=== PATIENT | male | born 1995 | race Two or more races ===

== ENCOUNTER 2018-01-10 23:45 | Emergency (ER) | payer OTHER ==
[~2018-01-10] VITALS: Ht 167.6 cm; Wt 117.9 kg
[2018-01-10 23:52] VITALS: BP 140/88
[2018-01-11] MEDS ORDERED: cefTRIAXone SOD 1,000 MG VL IM ONE (01:15)
[2018-01-11] MEDS ORDERED: methylPREDNISolone SOD SUCC 125 MG/2 ML VL IM ONE (01:15)
[2018-01-11] MEDS ORDERED: HYDROcodone-ACET 10/325MG TAB PO ONE (01:30)
[2018-01-11] MEDS ORDERED: BENZOCAINE (DENTAL) 20 % SPRAY 60ML MT ONE (02:30)
== END 2018-01-11 03:55 | disposition home or self-care (01) ==
LOC: ER 23:45
DX: J03.80 Acute tonsillitis due to other specified organisms (principal); B96.89 Other specified bacterial agents as the cause of diseases classified elsewhere
CPT/HCPCS: 70360; 71045; 96372; 99284; J0696; J2930

== ENCOUNTER 2018-01-11 20:45 | Emergency (ER) | payer OTHER ==
[~2018-01-11] VITALS: Ht 167.6 cm; Wt 117.9 kg
[2018-01-11 21:23] VITALS: BP 145/94
[2018-01-11] MEDS ORDERED: CLINDAMYCIN 900MG IV 50 ML IV ONE (22:45)
[2018-01-11] MEDS ORDERED: methylPREDNISolone SOD SUCC 125 MG/2 ML VL IM ONE (22:45)
[2018-01-11] MEDS ORDERED: cefTRIAXone SOD 1,000 MG VL IM ONE (22:45)
== END 2018-01-12 00:51 | disposition home or self-care (01) ==
LOC: ER 20:49
DX: J03.80 Acute tonsillitis due to other specified organisms (principal); B96.89 Other specified bacterial agents as the cause of diseases classified elsewhere
CPT/HCPCS: 96365; 96372; 99284; J0696; J2930; J3490

== ENCOUNTER 2018-02-02 19:53 | Emergency (ER) | payer OTHER ==
[~2018-02-02] VITALS: Ht 167.6 cm; Wt 117.9 kg
[2018-02-02] MEDS ORDERED: PENICILLIN G PROC & BENZAT 1200000 UNITS/2 ML SYRG IM ONE (21:45)
[2018-02-02 22:23] VITALS: BP 153/121
== END 2018-02-02 23:22 | disposition home or self-care (01) ==
LOC: ER 19:53
DX: J03.90 Acute tonsillitis, unspecified (principal); E66.01 Morbid (severe) obesity due to excess calories; Z68.41 Body mass index [BMI] 40.0-44.9, adult
CPT/HCPCS: 87070; 87880; 96372; 99283; J0558

== ENCOUNTER 2019-08-28 10:10 | Emergency (ER) | payer MEDICAID, OTHER ==
[~2019-08-28] VITALS: Ht 165.1 cm; Wt 136.1 kg
[2019-08-28 10:34] VITALS: BP 151/94
[2019-08-28] MEDS ORDERED: cefTRIAXone SOD 1,000 MG VL IM ONE (11:30)
[2019-08-28] MEDS ORDERED: methylPREDNISolone SOD SUCC 125 MG/2 ML VL IM ONE (11:30)
== END 2019-08-28 12:02 | disposition home or self-care (01) ==
LOC: ER 10:10
DX: J03.90 Acute tonsillitis, unspecified (principal)
CPT/HCPCS: 96372; 99284; J0696; J2930

== ENCOUNTER 2020-02-14 21:13 | Emergency (ER) | payer MEDICAID ==
[~2020-02-14] VITALS: Ht 167.6 cm; Wt 136.1 kg
[2020-02-14] MEDS ORDERED: ACETAMINOPHEN 325 MG TAB PO ONE (22:00)
[2020-02-14] MEDS ORDERED: ACETAMINOPHEN 500 MG TAB PO ONE (22:15)
[2020-02-14] MEDS ORDERED: DexAMETHasone 4 MG TAB PO ONE (22:45)
[2020-02-14 23:26] LABS: Basophils # (auto) 0 10 ^3/uL (0-0.2); Basophils % (auto) 0.9 % (0.0-2.0); Eosinophils # (auto) 0 10 ^3/uL (0-0.8); Eosinophils % (auto) 1.1 % (0.0-7.0); Hematocrit 46.1 % (41.0-53.0); Hemoglobin 16.1 g/dL (13.5-17.5); Lymphocytes # (auto) 1.5 10 ^3/uL (0.4-5.4); Mean Corpuscular Hgb Conc. 34.9 g/dL (32.0-36.0); Monocytes # (auto) 0.3 10 ^3/uL (0-1.3); Monocytes % (auto) 7.3 % (0.0-12.0); Neutrophils # (auto) 2.7 10 ^3/uL (1.6-8.6); Neutrophils % (auto) 57.7 % (37.0-80.0); Nucleated Red Blood Cells % 0.1 %; Platelet Count (auto) 172 10^3/uL (140-450); Red Blood Cells 5.37 10^6/uL (4.5-5.90); Red Cell Distribution Width 13.3 % (11.8-14.3); White Blood Cell 4.6 10^3/uL (4.4-10.8)
[2020-02-14 23:41] LABS: Albumin 3.5 g/dL (3.4-5.0); Calcium 8.7 mg/dL (8.5-10.1); Potassium 3.6 mmol/L (3.5-5.1)
[2020-02-14 23:49] LABS: Bilirubin, Total 0.3 mg/dL (0.2-1.0); Magnesium 2.3 mg/dL (1.6-2.6)
[2020-02-15 01:00] VITALS: BP 132/79
== END 2020-02-15 00:59 | disposition home or self-care (01) ==
LOC: ER 21:15
DX: U07.1 COVID-19 (principal)
CPT/HCPCS: 36415; 71045; 80053; 83605; 83735; 85025; 87040; 87426; 99284; J8540

== ENCOUNTER 2020-07-15 16:58 | Emergency (ER) | payer MEDICAID ==
[~2020-07-15] VITALS: Ht 167.6 cm; Wt 154.2 kg
[2020-07-16 00:37] VITALS: BP 149/88
== END 2020-07-16 01:28 | disposition home or self-care (01) ==
LOC: ER 16:58
DX: T14.8XXA Other injury of unspecified body region, initial encounter (principal); J34.2 Deviated nasal septum; E11.9 Type 2 diabetes mellitus without complications; Y04.2XXA Assault by strike against or bumped into by another person, initial encounter; Y93.89 Activity, other specified; Y92.89 Other specified places as the place of occurrence of the external cause; Y99.8 Other external cause status
CPT/HCPCS: 70450; 70486

== ENCOUNTER → 2021-02-14 | Outpatient (CLI) | payer MEDICAID | END | disposition home or self-care (01) | LOC: LAB 09:17 | PROVIDERS: ATTEND Internal Medicine | DX: Z20.822 Contact with and (suspected) exposure to COVID-19 (principal) | CPT/HCPCS: C9803; U0003 ==

== ENCOUNTER 2021-04-25 23:34 | Emergency (ER) | payer MEDICAID ==
[~2021-04-25] VITALS: Ht 167.6 cm; Wt 145.1 kg
[2021-04-25] MEDS ORDERED: EPINEPHrine HCL 1 MG/1 ML AMP ONE (23:53)
[2021-04-26] MEDS ORDERED: EPINEPHrine HCL 1 MG/1 ML AMP SC ONE (01:00)
[2021-04-26 04:57] VITALS: BP 147/85
[2021-04-26] MEDS ORDERED: CETI1TAB36 PO (04:59)
[2021-04-26] MEDS ORDERED: ALBU108A5 IN (04:59)
== END 2021-04-26 05:04 | disposition home or self-care (01) ==
LOC: ER 23:40
DX: J30.81 Allergic rhinitis due to animal (cat) (dog) hair and dander (principal); E11.9 Type 2 diabetes mellitus without complications; Z79.899 Other long term (current) drug therapy
CPT/HCPCS: 96372; 99283; J0171

== ENCOUNTER 2022-07-28 14:59 | Emergency (ER) | payer BC, MEDICAID ==
[~2022-07-28] VITALS: Ht 167.6 cm; Wt 143.6 kg
[~2022-07-28 14:59] MED LIST: ALBU108A5 IN; CETI1TAB36 PO
[2022-07-28 17:15] VITALS: BP 146/86
[2022-07-28] MEDS ORDERED: METH-1182 PO ×3 (17:45→17:46)
[2022-07-28] MEDS ORDERED: IBUP-1456 PO ×3 (17:45→17:46)
== END 2022-07-28 17:58 | disposition home or self-care (01) ==
LOC: ER 14:59
DX: S16.1XXA Strain of muscle, fascia and tendon at neck level, initial encounter (principal); E11.9 Type 2 diabetes mellitus without complications; G89.29 Other chronic pain; Y08.89XA Assault by other specified means, initial encounter; Y93.89 Activity, other specified; Y92.89 Other specified places as the place of occurrence of the external cause; Y99.8 Other external cause status
CPT/HCPCS: 72040